=== PATIENT | male | born 1980 | race Caucasian/White ===

== ENCOUNTER → 2020-04-04 | Outpatient (CLI) | payer BC, OTHER ==
[~2020-04-04] MED LIST: ALLEGRA-D 24 H1 EACH PO; NEURONTIN 100100 MG PO; PREDNISONE20 MG PO; PREVACID30 MG PO; ZANAFLEX4 MG PO
== END ==
LOC: EMI 03-25 13:00
DX: R51.9 Headache, unspecified (principal); J32.4 Chronic pansinusitis
CPT/HCPCS: 70551

== ENCOUNTER 2021-07-07 16:00 | Emergency (ER) | payer BC ==
[2021-07-07 18:02] LABS: HEMOGLOBIN 14.7 gm/dl (14.0-17.5); RED BLOOD COUNT 4.81 M/UL (4.20-5.50); WHITE BLOOD COUNT 9.2 K/UL (4.5-11.0)
[2021-07-07 18:52] LABS: BUN/CREATININE RATIO 13 (0-10)
[2021-07-07] MEDS ORDERED: AMOX TR-K CLV1 EAC4 PO (20:40)
== END 2021-07-07 21:22 | disposition home or self-care (01) ==
LOC: ER1 16:00
PROVIDERS: Nurse Practitioner
DX: R10.9 Unspecified abdominal pain (principal); Z20.822 Contact with and (suspected) exposure to COVID-19; K21.9 Gastro-esophageal reflux disease without esophagitis
CPT/HCPCS: 0240U; 80053; 81001; 83690; 85025; 96365; 96375; 99284; J2405; J2543; Q9967